=== PATIENT | female | born 1980 | race Caucasian/White ===

== ENCOUNTER 2019-07-03 21:16 | Observation (INO) | payer MEDICAID ==
[~2019-07-03] VITALS: Ht 175.3 cm; Wt 97.7 kg
[2019-07-03] MEDS ORDERED: ONDANSETRON HCL 4MG/2ML INJ IV STA (23:12)
[2019-07-03] MEDS ORDERED: SODIUM CHLORIDE 0.9% 1,000 ML IV ONE (23:12)
[2019-07-03] MEDS ORDERED: MAGNESIUM 2 G PREMIX 50 ML IV ONE (23:15)
[2019-07-04 00:29] LABS: BASOPHILS % 0.3 % (0.0-2.0); EOSINOPHILS % 0.6 % (0.0-5.0); HEMOGLOBIN. 11.8 g/dL (12.0-16.0); LYMPHOCYTES % 12.1 % (20.0-50.0); MEAN CORPUSCULAR HEMOGLOBIN 29.7 pg (28.0-32.0); MEAN CORPUSCULAR VOLUME 90.2 fL (81.0-99.0); MEAN PLATELET VOLUME 9.8 fl (7.4-10.4); MONOCYTES % 6.2 % (2.0-8.0); NEUTROPHILS % 80.8 % (40.0-76.0); PLATELET 241 x1000/uL (130-400); RED BLOOD CELL COUNT 3.99 mill/uL (4.2-5.4); RED CELL DISTRIBUTION WIDTH 12.9 % (11.6-14.6)
[2019-07-04 00:40] LABS: CHLORIDE 106 mEq/L (98-107)
[2019-07-04 00:46] LABS: ETHANOL BLOOD < 10 mg/dL
[2019-07-04 02:30] VITALS: BP 110/70
[2019-07-04] MEDS ORDERED: ACETAMINOPHEN 500MG TABLET PO SCH (03:30)
[2019-07-04] MEDS ORDERED: FLUO60TA PO (04:20)
[2019-07-04] MEDS ORDERED: PNV1TABL50 PO (04:20)
[2019-07-04] MEDS ORDERED: BUPR100T13 PO (04:20)
== END 2019-07-04 04:40 | disposition home or self-care (01) ==
LOC: ER 21:29 → 8 EST LDRP 07-04 03:01
PROVIDERS: ADMIT Obstetrics & Gynecology; ATTEND Obstetrics & Gynecology
DX: O99.352 Diseases of the nervous system complicating pregnancy, second trimester (principal); R56.9 Unspecified convulsions; Z3A.24 24 weeks gestation of pregnancy
CPT/HCPCS: 36415; 76805; 80053; 80320; 85025; 96365; 96375; 99281; G0378; J2405; J3475; J7030; G0480

== ENCOUNTER 2019-09-15 01:50 | Observation (INO) | payer OTHER ==
[~2019-09-15] VITALS: Ht 180.3 cm; Wt 104.3 kg
[~2019-09-15 01:50] MED LIST: BUPR100T13 PO; FLUO60TA PO; PNV1TABL50 PO
[2019-09-15] MEDS ORDERED: LACTATED RINGERS 1,000 ML IV SCH (02:30)
[2019-09-15] MEDS ORDERED: ONDANSETRON HCL 4MG/2ML INJ IM ONE (02:30)
[2019-09-15] MEDS ORDERED: LORAZEPAM 1MG TABLET PO SCH (04:00)
== END 2019-09-15 05:53 | disposition home or self-care (01) ==
LOC: 8 EST LDRP 01:50
PROVIDERS: ADMIT Obstetrics & Gynecology; ATTEND Obstetrics & Gynecology
DX: O21.2 Late vomiting of pregnancy (principal); O26.893 Other specified pregnancy related conditions, third trimester; E86.0 Dehydration; Z3A.35 35 weeks gestation of pregnancy
CPT/HCPCS: 96360; 96361; 96372; 99281; G0378; J2405

== ENCOUNTER 2019-09-20 23:29 | Inpatient (IN) | payer OTHER ==
[~2019-09-20] VITALS: Ht 180.3 cm; Wt 104.3 kg
[2019-09-21] MEDS ORDERED: LACTATED RINGERS 1,000 ML IV SCH (00:14)
[2019-09-21] MEDS ORDERED: DEXT 5%/LR + PITOCIN 20UNITS/L 1,000 ML IV SCH (00:14)
[2019-09-21] MEDS ORDERED: LIDOCAINE HCL 1% 20ML VIAL (Pyxis) INJ INFIL SCH (00:15)
[2019-09-21] MEDS ORDERED: NALOXONE HCL 0.4 MG/ML 1ML VIAL IM PRN (00:15)
[2019-09-21] MEDS ORDERED: METHYLERGONOVINE MALEATE 0.2 MG/ML IM PRN (00:15)
[2019-09-21] MEDS ORDERED: CARBOPROST TROMETHAMINE 250 MCG/ML AMPUL IM PRN (00:15)
[2019-09-21] MEDS ORDERED: BUTORPHANOL TARTRATE 2 MG/ML VIAL IV PRN (00:15)
[2019-09-21] MEDS ORDERED: CLINDAMYCIN 900 MG PREMIX 50 ML IV NR (00:30)
[2019-09-21 01:09] LABS: BASOPHILS % 0.3 % (0.0-2.0); EOSINOPHILS % 0.8 % (0.0-5.0); HEMATOCRIT. 38.1 % (36.0-48.0); HEMOGLOBIN. 12.7 g/dL (12.0-16.0); MEAN CORPUSCULAR HEMOGLOBIN 29.4 pg (28.0-32.0); MEAN CORPUSCULAR VOLUME 87.9 fL (81.0-99.0); MEAN PLATELET VOLUME 10.3 fl (7.4-10.4); MONOCYTES % 10.2 % (2.0-8.0); NEUTROPHILS % 65.7 % (40.0-76.0); PLATELET 219 x1000/uL (130-400); RED BLOOD CELL COUNT 4.34 mill/uL (4.2-5.4)
[2019-09-21 01:16] LABS: INR 0.9; PARTIAL THROMBOPLASTIN TIME 25.1 sec (23.4-31.0); PROTHROMBIN TIME 9.1 sec (9.6-11.0)
[2019-09-21] MEDS: DEXT 5%/LR + PITOCIN 20UNITS/L 1,000 ML IV SCH ×2 (01:18→02:36)
[2019-09-21] MEDS ORDERED: IBUPROFEN 400MG TABLET PO PRN (02:00)
[2019-09-21] MEDS ORDERED: RHO(D) IMMUNE GLOBULIN 300 MCG/SYR IM PRN (02:00)
[2019-09-21] MEDS ORDERED: BISACODYL 10MG SUPP PR PRN (02:00)
[2019-09-21 03:00] VITALS: BP 118/63
[2019-09-21 03:30] VITALS: BP 119/64
[2019-09-21 04:00] VITALS: BP 118/65
[2019-09-21 05:11] LABS: *AMPHETAMINES SCREEN URINE NEGATIVE (NEGATIVE); *BARBITURATES SCREEN URINE NEGATIVE (NEGATIVE); *BENZODIAZEPINES SCREEN URINE NEGATIVE (NEGATIVE); METHADONE URINE SCREEN NEGATIVE (NEGATIVE)
[2019-09-21 05:12] LABS: *COCAINE SCREEN URINE NEGATIVE (NEGATIVE); CANNABINOID URINE SCREEN NEGATIVE (NEGATIVE); OPIATES URINE SCREEN NEGATIVE (NEGATIVE); PHENCYCLIDINE URINE SCREEN NEGATIVE (NEGATIVE)
[2019-09-21 05:14] LABS: CLARITY URINE TURBID (CLEAR); KETONES URINE 2+ (NEGATIVE); LEUKOCYTE ESTERASE URINE 3+ (NEGATIVE); NITRITE URINE POSITIVE (NEGATIVE); OCCULT BLOOD URINE 3+ (NEGATIVE); PROTEIN URINE 2+ (NEGATIVE); SPECIFIC GRAVITY URINE 1.018 (1.005-1.030); UROBILINOGEN URINE 0.2 E.U./dL (0.2-1.0)
[2019-09-21 05:15] LABS: COLOR URINE BLOODY (YELLOW)
[2019-09-21 07:30] VITALS: BP 121/79
[2019-09-21] MEDS: PRENATAL VIT/FE FUMARATE/FA TABLET PO SCH (07:56)
[2019-09-21] MEDS ORDERED: CLINDAMYCIN 900 MG in DEXTROSE 5% WATER 50 ML IV SCH (08:00)
[2019-09-21 14:09] LABS: HEPATITIS B SURFACE ANTIGEN NEGATIVE
[2019-09-21 15:11] VITALS: BP 112/61
[2019-09-21 22:00] VITALS: BP 123/77
[2019-09-22 08:00] VITALS: BP 119/69
[2019-09-22 08:18] LABS: BASOPHILS % 0.4 % (0.0-2.0); EOSINOPHILS % 1.2 % (0.0-5.0); HEMATOCRIT. 32.6 % (36.0-48.0); HEMOGLOBIN. 11.1 g/dL (12.0-16.0); LYMPHOCYTES % 31.8 % (20.0-50.0); MEAN CORPUSCULAR HEMOGLOBIN 30.3 pg (28.0-32.0); MEAN CORPUSCULAR VOLUME 88.7 fL (81.0-99.0); MEAN PLATELET VOLUME 9.7 fl (7.4-10.4); MONOCYTES % 13.4 % (2.0-8.0); NEUTROPHILS % 53.2 % (40.0-76.0); PLATELET 195 x1000/uL (130-400); RED BLOOD CELL COUNT 3.67 mill/uL (4.2-5.4); RED CELL DISTRIBUTION WIDTH 13.4 % (11.6-14.6)
[2019-09-22] MEDS: PRENATAL VIT/FE FUMARATE/FA TABLET PO SCH (11:08)
[2019-09-22 16:26] VITALS: BP 129/83
[2019-09-22 19:30] VITALS: BP 129/80
[2019-09-22] MEDS: IBUPROFEN 800MG TABLET PO PRN (20:42)
[2019-09-23 04:00] VITALS: BP 129/80
[2019-09-23 07:45] VITALS: BP 119/71
[2019-09-23] MEDS: PRENATAL VIT/FE FUMARATE/FA TABLET PO SCH (08:43)
[2019-09-23] MEDS: IBUPROFEN 800MG TABLET PO PRN (08:43)
[2019-09-23] MEDS ORDERED: GLYCERIN/WITCH HAZEL LEAF MEDICATED PAD TOP PRN (13:45)
[2019-09-23] MEDS ORDERED: BENZOCAINE/LANOLIN/ALOE VERA SPRAY TOP PRN (13:45)
== END 2019-09-23 13:45 | disposition home or self-care (01) | DRG 560 ==
LOC: OBSVTOIN 23:29 → 8 EST LDRP 23:29 → 8EST 09-21 03:35
PROVIDERS: ADMIT Obstetrics & Gynecology; ATTEND Obstetrics & Gynecology
PROC: 10E0XZZ Delivery of Products of Conception, External Approach (ICD-10-PCS; principal; 2019-09-21)
PROC: 0KQM0ZZ Repair Perineum Muscle, Open Approach (ICD-10-PCS; 2019-09-21)
DX: O60.14X0 Preterm labor third trimester with preterm delivery third trimester, not applicable or unspecified (principal); F10.20 Alcohol dependence, uncomplicated; O99.314 Alcohol use complicating childbirth; F41.9 Anxiety disorder, unspecified; O99.344 Other mental disorders complicating childbirth; O42.913 Preterm premature rupture of membranes, unspecified as to length of time between rupture and onset of labor, third trimester; O70.1 Second degree perineal laceration during delivery; Z3A.36 36 weeks gestation of pregnancy; Z37.0 Single live birth; Z88.0 Allergy status to penicillin
CPT/HCPCS: 36415; 80305; 81003; 85025; 86592; 86703; 86762; 86850; 86900; 87340; 88307; G0378; J2590; J3490; J7060